=== PATIENT | male | born 1970 | race Caucasian/White ===

== ENCOUNTER 2020-06-04 10:50 | Emergency (ER) | payer BC, SELFPAY ==
[2020-06-04] VITALS (13 sets, daily range): BP systolic 100–156; BP diastolic 68–104; PULSE 66–102; RESP 17–20; TEMP 36.6–37.6; O2SAT 87–96; BMI 25.7
--- NOTE | 2020-06-04 11:14 | XRR_ITS ---
PROCEDURE INFORMATION: Exam: XR Chest, 1 View Exam date and time: 06/04/2020 3:24 PM Age: 49 years old Clinical indication: Other: Syncope TECHNIQUE: Imaging protocol: XR of the chest Views: 1 view. COMPARISON: No relevant prior studies available. FINDINGS: Lungs: Parenchymal consolidation is seen in the right lower lobe consistent with pneumonia. The right upper lobe is clear. Interstitial congestion is seen in the left upper lobe Pleural space: Unremarkable. No pleural effusion. No pneumothorax. Heart/Mediastinum: Unremarkable. No cardiomegaly. Bones/joints: Unremarkable. Soft tissues: Incidentally noted are metallic nipple rings XR/XR chest 1V portable [id number] IMPRESSION: 1. Dense parenchymal density right lower lobe consistent with pneumonia. 2. Left upper lobe interstitial densities. 3. Otherwise negative examination
[2020-06-04 12:17] LABS: Basophils % 0.1 %; Hematocrit 42.8 % (42.0-52.0); Hemoglobin 14.2 g/dL (11.7-16.6); Lymphocytes # 0.9 10^3/uL (0.8-4.8); Lymphocytes % 12.9 %; Mean Corpuscular HGB Conc 33.2 g/dL (30.0-36.0); Mean Corpuscular Hemoglobin 30.6 pg (28.0-34.0); Mean Corpuscular Volume 92.2 fL (80-94); Mean Platelet Volume 9.6 fL (7.4-10.4); Monocytes # 0.2 10^3/uL (0.2-0.9); Monocytes % 3.5 %; Neutrophils # 5.65 10^3/uL (1.8-7.7); Neutrophils % 83.1 %; Nucleated Red Blood Cells % 0 %; Platelet Count 250 10^3/cmm (130-400); Red Blood Count 4.64 10^6/uL (4.1-5.3); Red Cell Distribution Width 11.7 % (12.1-15.1); White Blood Count 6.8 10^3/uL (4.0-10.0)
[2020-06-04 12:30] LABS: Lactate (Lactic Acid level) 1.2 mmol/L (0.5-2.2)
[2020-06-04 12:31] LABS: Alanine Aminotransferase 26 U/L (0-41); Albumin Level 4.2 g/dL (3.5-5.2); Alkaline Phosphatase 77 IU/L (40-130); Anion Gap 16.9 (5-19); Aspartate Amino Transferase 32 U/L (0-40); Blood Urea Nitrogen 17 mg/dL (6-20); Calcium 8.9 mg/dL (8.5-10.5); Carbon Dioxide 26 mmol/L (22-29); Chloride 97 mmol/L (98-107); Globulin 2.9 g/dL (1.3-4.6); Glomerular Filtration Rate 53.6 mL/min (90-130); Glucose 106 mg/dL (65-115); Lactate Dehydrogenase 256 U/L (135-225); Osmolality Calculated 282 mOsm/kg (285-295); Potassium 4.9 mmol/L (3.5-5.1); Sodium 135 mmol/L (136-145); Total Bilirubin 0.3 mg/dL (0.15-1.2); Total Protein 7.1 g/dL (6.6-8.7)
--- NOTE | 2020-06-04 12:44 | ED_ITS ---
HPI - COVID General: Chief Complaint: COVID symptoms Stated Complaint: COVID +, dehydrated Time Seen by Provider: 06/04/20 12:04 Triage information: Has fever, cough or shortness of breath . Exposure to COVID + person last 14 days History of Present Illness: HPI Narrative: 49-year-old male patient presents to the emergency department with positive covered results on 05/28/2020. He reports onset of symptoms 9 days ago, reports continued 103-104 temp, continues with nausea vomiting, decreased appetite, + loss sense of taste and smell, reports no ill contacts, positive diarrhea. He reports feels awful today. Reports worsening symptoms past 2 to 3 days. MD complaint: known COVID positive Prior covid testing: yes, results known Prior testing date: 05/28/20 COVID 19 common symptoms: positive fever(s), chills, cough, dyspnea, fatigue, body aches, loss of sense of smell and/or taste, nausea, vomiting and diarrhea; negative headache(s) or throat pain COVID 19 other sytmptoms: negative chest pain Onset (ago): day(s) (-10) Severity: moderate Treatment prior to arrival: acetaminophen and ibuprofen COVID Results: No Data to Display Review of Systems General: Reports: 10 or more systems reviewed and unremarkable except in HPI and below Const: Reports: fever(s), chills, body aches and fatigue Eyes: Denies: blurry vision or eye redness ENMT: Denies: throat pain, dental pain or disequilibrium Card: Denies: chest pain, palpitations or irregular heart rhythm Resp: Reports: dyspnea GI: Reports: nausea, vomiting and diarrhea : Denies: dysuria Musc: Denies: back pain Skin/Breast: Denies: rash or pruritus Neuro: Denies: headache(s), weakness in extremities or behavioral changes Oh/Lymph: Denies: easy bruising Physical Exam Const: COMMON NORMALS: no acute distress, patient oriented x3, healthy appearing and alert GENERAL APPEARANCE: cooperative, comfortable and well hydrated HENMT: COMMON NORMALS: normocephalic, atraumatic, EAC's normal and Normal external nose present; oral mucous membranes not moist HEAD & SCALP: normocephalic and atraumatic FACE & SINUS: normal facial exam and face symmetric NOSE: Normal external nose present EXTERNAL AUDITORY CANAL: EAC's normal MOUTH: Abnormal oral and palatal mucosa present (dry) THROAT: posterior oropharynx normal Eye: COMMON NORMALS: Equal, round and reactive pupils present and EOMs intact bilaterally GENERAL EYE: appearance normal, both eyes and all related structures PUPIL: Yes Equal, round and reactive pupils present Neck/C-Spine: COMMON NORMALS: full ROM and no lymphadenopathy GENERAL: Yes normal visual inspection and Yes trachea midline CERVICAL SPINE: Yes cervical ROM normal Lymph: LYMPHATIC: no lymphadenopathy noted Chest: COMMONS NORMALS: normal inspection of the chest Resp: COMMON NORMALS: normal respiratory effort; negative for No use of accessory muscles EFFORT & INSPECTION: Yes able to speak in complete sentences AUSCULTATION: diminished lung sounds bilateral Cardio: COMMON NORMALS: regular rhythm, S1 normal heart sound present, S2 normal heart sound present and Peripheral pulses 2+ throughout RHYTHM: regular rhythm HEART SOUNDS: S1 normal heart sound present and S2 normal heart sound present PERIPHERAL PULSES: Peripheral pulses 2+ throughout GI: COMMON NORMALS: Soft to palpation and non-tender INSPECTION: Yes normal to inspection PALPATION: Yes Soft to palpation : COMMON NORMALS: Yes no CVA tenderness BLADDER/KIDNEY EXAM: Yes no CVA tenderness Back/Pelvis: COMMON NORMALS: no CVA tenderness and thoracic and lumbar spine normal to inspection Extremity: COMMON NORMALS: normal to inspection and capillary refill normal Neuro: COMMON NORMALS: patient oriented x3 and no focal motor deficits SENSORIUM/ORIENTATION: Yes alert Psych: COMMON NORMALS: mental status grossly normal, Normal thought process present and cooperative ACTIVITY/MOTOR BEHAVIOR: Yes appropriate eye contact THOUGHT PROCESS: Normal thought process present Skin: COMMON NORMALS: no rashes or lesions noted and turgor normal GENERAL SKIN EXAM: no rashes or lesions noted and turgor normal Course ED course: 49-year-old male patient presents to the emergency department with COVID symptoms. Tested + at [facility], antibody test positive . He received IV fluids here in the ER, chest x-ray revealed right side pneumonia, findings not consistent with COVID on chest x-ray. O2 saturation 92 to 93% on room air, he originally was doing better early in his ER stay after IV fluid administered, he then became nauseated, feeling worse, case discussed with Dr. Baig, transfer of care as patient will need hospitalization. He was not able to tolerate p.o. fluids here in the ED. Vital Signs: Vital signs: Vital Signs Temperature 97.8 F 06/04/20 16:40 Pulse Rate 84 06/04/20 17:00 Respiratory Rate 17 06/04/20 17:00 Blood Pressure 124/68 06/04/20 17:00 Pulse Oximetry 94 06/04/20 17:02 [facility] - COVID Lab Data Result diagrams: 06/04/20 11:53 06/04/20 11:53 Labs: Lab Results 06/04/20 06/04/20 06/04/20 Range/Units 11:53 11:53 11:53 WBC 6.8 (4.0-10.0) 10^3/uL RBC 4.64 (4.1-5.3) 10^6/uL Hgb 14.2 (11.7-16.6) g/dL Hct 42.8 (42.0-52.0) % MCV 92.2 (80-94) fL MCH 30.6 (28.0-34.0) pg MCHC 33.2 (30.0-36.0) g/dL RDW 11.7 L (12.1-15.1) % Plt Count 250 (130-400) 10^3/cmm MPV 9.6 (7.4-10.4) fL Neut % (Auto) 83.1 % Lymph % (Auto) 12.9 % [place] % (Auto) 3.5 % Eos % (Auto) 0.0 % Baso % (Auto) 0.1 % Neut # (Auto) 5.65 (1.8-7.7) 10^3/uL Lymph # (Auto) 0.9 (0.8-4.8) 10^3/uL [place] # (Auto) 0.2 (0.2-0.9) 10^3/uL Eos # (Auto) 0.0 (0.0-0.8) 10^3/uL Baso # (Auto) 0.0 (0.0-0.1) 10^3/uL Nucleated RBC % (auto) 0 % Nucleated RBCs # 0.0 /100WBC D-Dimer <= 0.27 (0-0.59) ug/mIFEU Sodium 135 L (136-145) mmol/L Potassium 4.9 (3.5-5.1) mmol/L Chloride 97 L (98-107) mmol/L Carbon Dioxide 26 (22-29) mmol/L Anion Gap 16.9 (5-19) BUN 17 (6-20) mg/dL Creatinine 1.4 H (0.7-1.2) mg/dL GFR Calculation 53.6 L (90-130) mL/min Glucose 106 (65-115) mg/dL Calculated Osmolality 282 L (285-295) mOsm/kg Lactate (0.5-2.2) mmol/L Calcium 8.9 (8.5-10.5) mg/dL Ferritin 707 H (30-400) ng/mL Total Bilirubin 0.3 (0.15-1.2) mg/dL AST 32 (0-40) U/L ALT 26 (0-41) U/L Alkaline Phosphatase 77 (40-130) IU/L Lactate Dehydrogenase 256 H (135-225) U/L C-Reactive Protein (0.0-4.9) mg/L Total Protein 7.1 (6.6-8.7) g/dL Albumin 4.2 (3.5-5.2) g/dL Globulin 2.9 (1.3-4.6) g/dL Procalcitonin (0-0.5) ng/mL 06/04/20 06/04/20 Range/Units 11:53 11:53 WBC (4.0-10.0) 10^3/uL RBC (4.1-5.3) 10^6/uL Hgb (11.7-16.6) g/dL Hct (42.0-52.0) % MCV (80-94) fL MCH (28.0-34.0) pg MCHC (30.0-36.0) g/dL RDW (12.1-15.1) % Plt Count (130-400) 10^3/cmm MPV (7.4-10.4) fL Neut % (Auto) % Lymph % (Auto) % [place] % (Auto) % Eos % (Auto) % Baso % (Auto) % Neut # (Auto) (1.8-7.7) 10^3/uL Lymph # (Auto) (0.8-4.8) 10^3/uL [place] # (Auto) (0.2-0.9) 10^3/uL Eos # (Auto) (0.0-0.8) 10^3/uL Baso # (Auto) (0.0-0.1) 10^3/uL Nucleated RBC % (auto) % Nucleated RBCs # /100WBC D-Dimer (0-0.59) ug/mIFEU Sodium (136-145) mmol/L Potassium (3.5-5.1) mmol/L Chloride (98-107) mmol/L Carbon Dioxide (22-29) mmol/L Anion Gap (5-19) BUN (6-20) mg/dL Creatinine (0.7-1.2) mg/dL GFR Calculation (90-130) mL/min Glucose (65-115) mg/dL Calculated Osmolality (285-295) mOsm/kg Lactate 1.2 (0.5-2.2) mmol/L Calcium (8.5-10.5) mg/dL Ferritin (30-400) ng/mL Total Bilirubin (0.15-1.2) mg/dL AST (0-40) U/L ALT (0-41) U/L Alkaline Phosphatase (40-130) IU/L Lactate Dehydrogenase (135-225) U/L C-Reactive Protein 61.3 H (0.0-4.9) mg/L Total Protein (6.6-8.7) g/dL Albumin (3.5-5.2) g/dL Globulin (1.3-4.6) g/dL Procalcitonin 0.18 (0-0.5) ng/mL COVID Results: No Data to Display Discharge Plan Discharge Condition: Stable Prescriptions: No Action bupropion HCl 300 mg tablet extended release 24 hr 300 mg PO DAILY RF: 0 fenofibrate nanocrystallized 145 mg tablet 145 mg PO DAILY RF: 0 Referrals: Shereen Mujica DPM [Primary Care Provider] - Lalo Arguelles Jr, MD [Family Provider] - Coding Level of Care Code 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
[2020-06-04 12:49] LABS: D Dimer <= 0.27 ug/mIFEU (0-0.59)
[2020-06-04] MEDS: sodium chloride 0.9% 500 ML 999 ML IV (12:50)
[2020-06-04] MEDS: ondansetron 2 mg/ML SDV 2 mL 4 MG IVP ×2 (12:51→16:53)
[2020-06-04 12:56] LABS: Ferritin 707 ng/mL (30-400)
[2020-06-04] MEDS: acetaminophen 500 mg Tablet 1000 MG PO (16:32)
[2020-06-04] MEDS: cefTRIAXone 1,000 MG in sodium chloride 0.9% (plus) 50 ML 100 MG IV (16:40)
[2020-06-04] MEDS: dexamethasone 10 mg/mL INJ IVP (16:45)
[2020-06-04 16:51] LABS: Procalcitonin 0.18 ng/mL (0-0.5)
[2020-06-04 17:06] LABS: C Reactive Protein 61.3 mg/L (0.0-4.9)
[2020-06-04] MEDS: azithromycin 500 MG in sodium chloride 0.9% 250 ML 250 MG IV (17:23)
[2020-06-04 18:30] LABS: SARS Covid-2 Antigen Positive (Negative)
[2020-06-04 21:06] LABS: Troponin T (5th) Once 7 ng/L (0-15)
== END 2020-06-04 22:22 ==
PROVIDERS: Nurse Practitioner Family; Emergency Provider Emergency Medicine; Family Provider Family Medicine; PCP Nurse Practitioner
DX: U07.1 COVID-19 (principal)
CPT/HCPCS: 12345; 71045; 80053; 82728; 83605; 83615; 84145; 84484; 85025; 85378; 86140; 87426; 96365; 96367; 96368; 96375; 99284; 99285; J0456; J0696; J1100; J2405; J7040; J7050

== ENCOUNTER 2022-09-01 12:30 | Outpatient (CLI) | payer OTHER, MEDICAID, SELFPAY | END 2022-09-01 12:31 | disposition home or self-care (01) | LOC: SLEEP 09-02 09:00 | PROVIDERS: Family Provider Family Medicine; Visit Provider Nurse Practitioner Family | DX: R06.83 Snoring (principal) | CPT/HCPCS: G0399 ==

== ENCOUNTER 2023-05-21 06:39 | Day surgery (SDC) | payer OTHER, MEDICAID, SELFPAY ==
[2023-05-19 09:33] VITALS: BMI 27.8
--- NOTE | 2023-05-21 06:55 | W.PM.OPSFHP ---
Same Day Surgery H&P Indication for Procedure/HPI DATE OF PROCEDURE: May 21, 2023 CHIEF COMPLAINT/INDICATIONFOR SURGICAL PROCEDURE: need for screening colonoscopy PREOP DIAGNOSIS: encouter for screening colonoscopy PLANNED PROCEDURE: Operation Date: 05/21/23 08:00 Proposed Procedures p Colonoscopy 53447,Z12.11(Not Applicable) - Delfino Jacinto MD Medications/Allergies* Home Medications Medication Instructions Recorded Confirmed Type bupropion HCl 300 mg 24 hr tablet, 300 mg PO DAILY 06/04/20 05/19/23 History extended release fenofibrate nanocrystallized 145 145 mg PO DAILY 06/04/20 05/19/23 History mg tablet ropinirole 1 mg tablet 1 mg PO TID 03/26/23 05/19/23 History sildenafil (pulm.hypertension) 20 20 mg PO PRN 03/26/23 05/19/23 History mg tablet Allergies/Adverse Reactions Allergy/AdvReac Type Severity Reaction Status Date / Time No Known Allergies Allergy Verified 05/21/23 06:55 Pertinent Exam Findings alert, oriented x 3, clear to auscultation bilaterally and regular rate & rhythm Recommendations Surgery/Procedure today Other Plans: After a complete history, physical examination and review of all available clinical data. I have offer screening colonoscopy as indicated by the current guidelines. I have discussed all the risks and benefits of the colonoscopy. Including, the risk of perforation requiring surgical intervention, rectal bleeding, incomplete colonoscopy requiring repeat procedure in 3 months, missed polyps, need for additional procedures. Patient shows understanding and wishes to proceed. Coding Level of Care Code Acute Code for Chg Fwd Diagnoses
[2023-05-21 06:57] VITALS: BP 136/93; PULSE 65; RESP 18; TEMP 36.3; O2SAT 99
[2023-05-21] MEDS: sodium chloride 0.9% 1,000 ML 30 ML IV (06:58)
--- NOTE | 2023-05-21 07:48 | P.ANESASSM_ITS ---
Pre-Anesthetic Assessment Height/Weight: Height 1.8 m Weight 90.718 kg Temp Pulse Resp BP Pulse Ox O2 Del Method 97.3 F L 65 18 136/93 99 Room Air 05/21/23 06:57 05/21/23 06:57 05/21/23 06:57 05/21/23 06:57 05/21/23 06:57 05/21/23 06:57 Preop Diagnosis: encouter for screening colonoscopy Operation Date: 05/21/23 08:00 Proposed Procedures p Colonoscopy 22234,Z12.11(Not Applicable) - Delfino Jacinto MD Familial anesthetic complications: none Was Beta Abdi taken within 24 hours: N/A Was Clonidine taken within 24 hours: N/A Last intake: Intake Last Liquid Date 05/20/23 Last Liquid Time 18:00 Last Solid Date 05/19/23 Last Solid Time 22:00 Social Alcohol (drink beer daily) and Tobacco (Vape) Exam alert, oriented x 3, clear to auscultation bilaterally and regular rate & rhythm Airway Submandibular: within normal limits Cervical ROM: within normal limits Mallampati: Class II Dentition: chipped Pulmonary Asthma (childhood but resolved now) CV/HEM None reported None reported Hepatic None reported GI Gastroesophageal Reflux Disease (OTC controls) Metabolic Hyperlipidemia [facility] Osteoarthritis/DJD Neuropsych Anxiety and Depression Anesthetic Plan ASA status: 2 Anesthesia: MAC Risk of > 500 ml blood loss (7ml/kg in children): No Medications/Allergies Home Medications Medication Instructions Recorded Confirmed Last Taken Type bupropion HCl 300 mg 24 hr tablet, 300 mg PO DAILY 06/04/20 05/19/23 05/20/23 History extended release fenofibrate nanocrystallized 145 145 mg PO DAILY 06/04/20 05/19/23 05/20/23 History mg tablet ropinirole 1 mg tablet 1 mg PO TID 03/26/23 05/19/23 05/20/23 History sildenafil (pulm.hypertension) 20 20 mg PO PRN 03/26/23 05/21/23 Unknown History mg tablet Allergies Allergy/AdvReac Type Severity Reaction Status Date / Time No Known Allergies Allergy Verified 05/21/23 06:55 Current Medications Generic Name Dose Route Start Last Admin Trade Name Freq PRN Reason Stop Dose Admin Sodium Chloride 1,000 mls @ 30 mls/hr 05/20/23 21:15 05/21/23 06:58 Sodium Chloride 0.9% IV 30 mls/hr .Q24H TESS Administration Data Anesthesia Cardiac Studies: 2 No Data to Display
[2023-05-21 08:28] VITALS: BP 111/72; PULSE 81; RESP 16; TEMP 36.2; O2SAT 98
[2023-05-21 08:37] VITALS: BP 108/73; PULSE 87; RESP 16; O2SAT 97
== END 2023-05-21 09:00 | disposition home or self-care (01) ==
PROVIDERS: PCP Nurse Practitioner Family; Visit Provider Surgery
PROC: 0DJD8ZZ Inspection of Lower Intestinal Tract, Via Natural or Artificial Opening Endoscopic (ICD-10-PCS; CPT 45378; principal; 2023-05-21 08:00)
DX: Z12.11 Encounter for screening for malignant neoplasm of colon (principal); D12.7 Benign neoplasm of rectosigmoid junction; F17.200 Nicotine dependence, unspecified, uncomplicated; K21.9 Gastro-esophageal reflux disease without esophagitis; E78.5 Hyperlipidemia, unspecified
CPT/HCPCS: 45385; 88305; J2704; J7030